=== PATIENT | male | born 1965 | race Caucasian/White ===

== ENCOUNTER 2016-06-08 09:03 | Inpatient (IN) | payer OTHER, MEDICAID ==
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
[2016-06-08] MEDS ORDERED: fentaNYL 100 MCG/2 ML INJ ONE ×2 (09:28→10:50)
[2016-06-08] MEDS ORDERED: IOPAMIDOL (ISOVUE-300) 100 ML BTL IV ONE (09:49)
[2016-06-08] MEDS ORDERED: ETOMIDATE 40 MG/20 ML INJ ONE (10:50)
[2016-06-08] MEDS ORDERED: HYDROmorphONE/DILAUDID 1 MG/ML SYR ONE (10:58)
[2016-06-08] MEDS ORDERED: ONDANSETRON 4 MG/2 ML VIAL ONE (11:00)
[2016-06-08] MEDS ORDERED: fentaNYL 100 MCG/2 ML INJ IVP ONE (11:09)
[2016-06-08] MEDS ORDERED: NS 1,000 ML IV ONE ×3 (11:10→11:14)
[2016-06-08] MEDS ORDERED: HYDROmorphONE/DILAUDID 2 MG/ML INJ IVP PRN (11:15)
[2016-06-08] MEDS ORDERED: ONDANSETRON 4 MG/2 ML VIAL IVP ONE (11:15)
[2016-06-08 11:57] LABS: HEMATOCRIT 41.6 % (40.0-51.0); HEMOGLOBIN 13.8 g/dL (13.7-17.5); LIPEMIA HEMOLYSIS FLAG 80 (0-99); MEAN CELL HEMOGLOBIN 31.4 pg (27.9-34.1); MEAN CELL HEMOGLOBIN CONCENTR. 33.2 g/dL (32.4-36.7); MEAN CELL VOLUME 94.8 fL (81.5-99.8); PLATELET COUNT 563 10^3/uL (150-400); RED BLOOD CELL COUNT 4.39 10^6/uL (4.40-6.38); RED CELL DISTRIBUTION WIDTH 12.8 % (11.5-15.2)
[2016-06-08] MEDS ORDERED: LR 1,000 ML IV SCH (12:00)
[2016-06-08 12:04] LABS: ALANINE AMINOTRANSFERASE 42 IU/L (21-72); ALBUMIN 4.6 g/dL (3.5-5.0); ALKALINE PHOSPHATASE 102 IU/L (38-126); ANION GAP 15 mEq/L (8-16); ASPARTATE AMINOTRANSFERASE 54 IU/L (17-59); BILIRUBIN,TOTAL 0.7 mg/dL (0.1-1.4); CALCIUM 9.6 mg/dL (8.5-10.4); CARBON DIOXIDE 26 mEq/l (22-31); CHLORIDE 100 mEq/L (97-110); CREATININE 0.8 mg/dL (0.7-1.3); GLOMERULAR FILTRATION RATE > 60; GLUCOSE 108 mg/dL (70-100); POTASSIUM 4.1 mEq/L (3.5-5.2); SODIUM 141 mEq/L (134-144)
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
--- NOTE | 2016-06-08 12:11 | DX ---
Portable Chest, 11:28 AM History: Post left chest tube placement for pneumothorax Comparison: 10:04 AM Findings: A new left chest tube is in place. A left pneumothorax is smaller. There is no evidence for tension. Left lateral chest wall and cervical subcutaneous emphysema remains, adjacent to displaced left rib fractures. The left lung remains well aerated. The stomach is distended with gas. Impression: 1.Improved left pneumothorax post chest tube placement. 2. Gaseous distention of the stomach.
[2016-06-08 12:20] LABS: COLOR YELLOW; LEUKOCYTE ESTERASE,URINE NEGATIVE (NEGATIVE); NITRITE,URINE NEGATIVE (NEGATIVE)
[2016-06-08 12:25] LABS: RBC,URINE 50-182 /hpf (0-3)
[2016-06-08] MEDS: ONDANSETRON 4 MG/2 ML VIAL IVP PRN (13:16)
[2016-06-08] MEDS: LR 1,000 ML IV SCH ×2 (13:16→21:47)
[2016-06-08] MEDS: HYDROmorphONE/DILAUDID 1 MG/ML SYR IVP PRN (13:16)
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
[2016-06-08] MEDS: ACETAMINOPHEN 500 MG TAB PO SCH ×2 (16:50→21:46)
[2016-06-08 19:00] LABS: HEMATOCRIT 32.7 % (40.0-51.0)
[2016-06-08] MEDS: KETOROLAC 30 MG/1 ML SDV IVP SCH (19:51)
[2016-06-09 00:32] LABS: HEMATOCRIT 29.3 % (40.0-51.0); HEMOGLOBIN 9.8 g/dL (13.7-17.5)
[2016-06-09] MEDS: HYDROmorphONE/DILAUDID 1 MG/ML SYR IVP PRN ×7 (00:36→23:30)
[2016-06-09] MEDS: ONDANSETRON 4 MG/2 ML VIAL IVP PRN (00:45)
[2016-06-09] MEDS: KETOROLAC 30 MG/1 ML SDV IVP SCH ×5 (01:49→23:18)
[2016-06-09 02:11] LABS: COLOR YELLOW; LEUKOCYTE ESTERASE,URINE NEGATIVE (NEGATIVE); NITRITE,URINE NEGATIVE (NEGATIVE)
[2016-06-09 02:17] LABS: MUCUS TRACE /lpf (NONE-1+)
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
[2016-06-09] MEDS: ACETAMINOPHEN 500 MG TAB PO SCH ×3 (06:10→21:30)
[2016-06-09 06:11] LABS: % IMMATURE GRANULYOCYTES 0.6 % (0.0-1.1); ABSOLUTE IMMATURE GRANULOCYTES 0.05 10^3/uL (0.00-0.10); ADD DIFF? NO; ADD MORPH? NO; ADD SCAN? NO; ATYPICAL LYMPHOCYTE FLAG 20 (0-99); FRAGMENT RBC FLAG 0 (0-99); HEMATOCRIT 28.5 % (40.0-51.0); HEMOGLOBIN 9.6 g/dL (13.7-17.5); LEFT SHIFT FLG 10 (0-99); LIPEMIA HEMOLYSIS FLAG 80 (0-99); MEAN CELL HEMOGLOBIN 32.4 pg (27.9-34.1); MEAN CELL HEMOGLOBIN CONCENTR. 33.7 g/dL (32.4-36.7); MEAN CELL VOLUME 96.3 fL (81.5-99.8); MEAN PLATELET VOLUME 8.9 fL (8.7-11.7); PLATELET CLUMPS FLAG 0 (0-99); PLATELET COUNT 307 10^3/uL (150-400); RED BLOOD CELL COUNT 2.96 10^6/uL (4.40-6.38); RED CELL DISTRIBUTION WIDTH 13.1 % (11.5-15.2)
[2016-06-09] MEDS: LR 1,000 ML IV SCH ×3 (06:15→23:18)
[2016-06-09 06:33] LABS: ANION GAP 5 mEq/L (8-16); CALCIUM 8.5 mg/dL (8.5-10.4); CARBON DIOXIDE 26 mEq/l (22-31); CHLORIDE 106 mEq/L (97-110); CREATININE 0.7 mg/dL (0.7-1.3); GLOMERULAR FILTRATION RATE > 60; GLUCOSE 91 mg/dL (70-100); POTASSIUM 4.5 mEq/L (3.5-5.2); SODIUM 137 mEq/L (134-144)
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
--- NOTE | 2016-06-09 11:13 | GOP ---
[f rep st] OPERATIVE REPORT DATE OF OPERATION: 06/08/2016 SURGEON: Presley Perales MD PREOPERATIVE DIAGNOSIS: Hemopneumothorax, left chest. POSTOPERATIVE DIAGNOSIS: Hemopneumothorax, left chest. PROCEDURE PERFORMED: Placement of left chest tube. This was done under emergent situation. FINDINGS: Hemopneumothorax, left chest. DESCRIPTION OF PROCEDURE: The patient was placed in the supine position on the ER [facility] in trauma b ay 1. His left arm was placed above his head. His left chest was carefully palpated. He has fractu res of ribs 1 through 12. There was a point laterally where rib 5 is minimally tender for him. This was chosen for the place for the chest tube. The chest was carefully prepped and draped. Surgical time-out was carried out and agreed to by all members of the ER team. The skin was anesthetized with 1% Xylocaine and subcutaneous tissues anesthetized with 1% lidocaine. What appears to be the 5th ri b was anesthetized with 1% Xylocaine on its anterior superior surface. The intercostal space between ribs 4 and 5 was anesthetized with 1% Xylocaine. The skin was incised. Careful spreading technique is used to develop a tract over the top of the 5th rib. A #28-Ukrainian chest tube was directed superiorly and anteriorly. It was secured in position wi th a suture #0 silk. A 2nd suture of #0 silk was used to complete the closure of the skin incision. A sterile dressing was applied. The patient was connected to a Pleur-evac. A chest x-ray shows the lung almost completely re-expanded. The patient tolerated the procedure well. /[id number]/MODL
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
[2016-06-10] MEDS: HYDROmorphONE/DILAUDID 1 MG/ML SYR IVP PRN ×3 (01:26→09:58)
[2016-06-10] MEDS: KETOROLAC 30 MG/1 ML SDV IVP SCH ×4 (05:31→23:19)
[2016-06-10] MEDS: ACETAMINOPHEN 500 MG TAB PO SCH ×3 (05:31→20:34)
[2016-06-10] MEDS ORDERED: POLYETHYLENE GLYCOL 3350 17 GM PKT PO PRN (10:53)
[2016-06-10] MEDS ORDERED: BISACODYL 10 MG SUPP PR PRN (10:53)
[2016-06-10] MEDS ORDERED: MAGNESIUM HYDROXIDE 30 ML UDCUP PO PRN (10:53)
[2016-06-10] MEDS ORDERED: LACTULOSE 20 GM/30 ML UDCUP PO PRN (10:53)
[2016-06-10] MEDS: LR 1,000 ML IV SCH (11:22)
[2016-06-10 11:49] LABS: ALANINE AMINOTRANSFERASE 60 IU/L (21-72); ALBUMIN 2.9 g/dL (3.5-5.0); ALKALINE PHOSPHATASE 69 IU/L (38-126); ANION GAP 8 mEq/L (8-16); ASPARTATE AMINOTRANSFERASE 93 IU/L (17-59); BILIRUBIN,TOTAL 0.8 mg/dL (0.1-1.4); CALCIUM 7.8 mg/dL (8.5-10.4); CARBON DIOXIDE 25 mEq/l (22-31); CHLORIDE 102 mEq/L (97-110); CREATININE 0.5 mg/dL (0.7-1.3); GLOMERULAR FILTRATION RATE > 60; GLUCOSE 86 mg/dL (70-100); HEMATOCRIT 25.5 % (40.0-51.0); HEMOGLOBIN 8.5 g/dL (13.7-17.5); MEAN CELL HEMOGLOBIN 32.3 pg (27.9-34.1); MEAN CELL HEMOGLOBIN CONCENTR. 33.3 g/dL (32.4-36.7); POTASSIUM 3.7 mEq/L (3.5-5.2); RED BLOOD CELL COUNT 2.63 10^6/uL (4.40-6.38); RED CELL DISTRIBUTION WIDTH 12.5 % (11.5-15.2); SODIUM 135 mEq/L (134-144); TOTAL PROTEIN 5.5 g/dL (6.3-8.2)
--- NOTE | 2016-06-10 12:27 | DX ---
Portable Chest, 12:15 History: Follow-up rib fractures and hemopneumothorax Comparison: Yesterday Findings: A left chest tube remains in place, with subcutaneous emphysema. There is a slightly improv ed, still small apical pneumothorax without evidence for tension. There is some consolidation at the medial left lung base, unchanged since yesterday. Cardiomegaly remains. No new chest pathology identi fied. Impression: Some improvement in a still small left pneumothorax.
--- NOTE | 2016-06-10 12:52 | TRAUMAPN ---
- Problem/Surgery Performed (1) Ribs, multiple fractures Assessment/Plan: PAD#2 06/10/2016 Assessment: * PTX; no air leak, tube in good position, small PTX but not communicating with chest tube * Hemothorax; Output too high for consideration for chest tube removal * Ribs; poorly aligned, will possibly consider fib fixation Plan: Chest tube off suction follow up cxr Qualifiers: Encounter type: subsequent encounter Fracture type: closed Laterality: left (2) Pelvic fracture Assessment/Plan: Dr. Boyer's note appreciated. Patient is working with PT regarding ambulation. He says that with his leg sttraight he is feeling more stable Qualifiers: Encounter type: subsequent encounter Pelvic bone location: multiple parts Fracture type: closed Fracture alignment: with stable disruption of pelvic ring (3) Hemorrhage Assessment/Plan: HCT slowly dropping. Patient did have a grade 1 splenic lac, bleeding into retro pubic space, microscopic hematuria plan to follow HCT - may need f/u CT abdomen (4) Osteopenia Assessment/Plan: appears to be osteopenic will consider DEXA scan Subjective: " I'm feeling better Objective: Vital Signs Temp Pulse Resp BP Pulse Ox 36.8 C 77 18 117/66 96 06/10/16 12:00 06/10/16 12:00 06/10/16 12:00 06/10/16 12:00 06/10/16 12:00 Laboratory Results 06/10/16 11:00 06/10/16 11:00 06/09/16 06/10/16 06/11/16 05:59 05:59 05:59 Intake Total 2450 3017 Output Total 1675 1410 Balance 775 1607 Physical Exam - Physical Exam General Appearance: WD/WN, alert, no apparent distress Neck: non-tender, full range of motion, supple Respiratory: lungs clear, normal breath sounds, other (left chest tube in place) Cardiac/Chest: regular rate, rhythm Abdomen: normal bowel sounds, non-tender, soft Male Genitalia: deferred Rectal: deferred Back: Normal inspection Skin: normal color, warm/dry Extremities: normal range of motion, non-tender, normal inspection Neuro/Psych: other (Walking difficult due to sacral/inferior pubic ramus/ superior pubic ramus fractures) Time Spent w/Patient (minutes): 35
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
[2016-06-10] MEDS: HYDROmorphONE/DILAUDID 2 MG TAB PO PRN (20:33)
[2016-06-10] MEDS: SENNOSIDES/DOCUSATE SODIUM TAB PO SCH (20:36)
[2016-06-10 20:38] LABS: HEMATOCRIT 26.9 % (40.0-51.0); MEAN CELL HEMOGLOBIN 31.8 pg (27.9-34.1); MEAN CELL HEMOGLOBIN CONCENTR. 33.5 g/dL (32.4-36.7); MEAN CELL VOLUME 95.1 fL (81.5-99.8); RED BLOOD CELL COUNT 2.83 10^6/uL (4.40-6.38); RED CELL DISTRIBUTION WIDTH 12.2 % (11.5-15.2)
[2016-06-11] MEDS: HYDROmorphONE/DILAUDID 2 MG TAB PO PRN ×4 (02:19→20:25)
[2016-06-11] MEDS: ACETAMINOPHEN 500 MG TAB PO SCH ×2 (05:00→12:46)
[2016-06-11] MEDS: KETOROLAC 30 MG/1 ML SDV IVP SCH ×3 (05:01→18:22)
[2016-06-11 05:04] LABS: % IMMATURE GRANULYOCYTES 0.5 % (0.0-1.1); ABSOLUTE IMMATURE GRANULOCYTES 0.04 10^3/uL (0.00-0.10); ADD DIFF? NO; ADD MORPH? NO; ADD SCAN? NO; ATYPICAL LYMPHOCYTE FLAG 10 (0-99); FRAGMENT RBC FLAG 0 (0-99); HEMATOCRIT 24.3 % (40.0-51.0); HEMOGLOBIN 8.3 g/dL (13.7-17.5); LEFT SHIFT FLG 0 (0-99); LIPEMIA HEMOLYSIS FLAG 90 (0-99); MEAN CELL HEMOGLOBIN 32.3 pg (27.9-34.1); MEAN CELL HEMOGLOBIN CONCENTR. 34.2 g/dL (32.4-36.7); MEAN CELL VOLUME 94.6 fL (81.5-99.8); PLATELET CLUMPS FLAG 0 (0-99); PLATELET COUNT 238 10^3/uL (150-400); RED BLOOD CELL COUNT 2.57 10^6/uL (4.40-6.38); RED CELL DISTRIBUTION WIDTH 12.5 % (11.5-15.2)
--- NOTE | 2016-06-11 08:39 | DX ---
Portable AP chest. 06/11/2016 at 6:13 AM History: 1-12 left rib fractures with chest tube Comparison study: June 10, 2016 Findings: Multiple left-sided rib fractures are again noted, with a moderately displaced fracture in the mid to lower left hemithorax. There is a small left-sided pneumothorax accumulating at the costop hrenic angle. No apical pneumothorax. Left chest tube is stable. Right lung is clear. Heart size is normal. Impression: Stable chest. Multiple left-sided rib fractures. Small left pneumothorax.
[2016-06-11] MEDS: SENNOSIDES/DOCUSATE SODIUM TAB PO SCH ×2 (09:41→20:25)
--- NOTE | 2016-06-11 13:07 | TRAUMAPN ---
- Problem/Surgery Performed (1) Ribs, multiple fractures Assessment/Plan: PAD#2 06/10/2016 Assessment: * PTX; no air leak, tube in good position, small PTX but not communicating with chest tube * Hemothorax; Output too high for consideration for chest tube removal * Ribs; poorly aligned, will possibly consider fib fixation Plan: Chest tube off suction follow up cxr PAD#3 06/11/2016 Assessment: Hct slowly dropping. Presume secondary to chest tube/lab losses. Will consider getting FU CT abdomen to reassess spleen. Note chest tube inadvertently pulled out slightly today. Position still adequate but this did prompt some bleeding from insertion site. Minimal PTX. good pain management. Plan: Fu cxr tomorrow and possible CT Qualifiers: Encounter type: subsequent encounter Fracture type: closed Laterality: left (2) Pelvic fracture Assessment/Plan: PAD#2 Dr. Boyer's note appreciated. Patient is working with PT regarding ambulation. He says that with his leg sttraight he is feeling more stable PAD#3 Patient up and walking. Pain less Qualifiers: Encounter type: subsequent encounter Pelvic bone location: multiple parts Fracture type: closed Fracture alignment: with stable disruption of pelvic ring (3) Hemorrhage Assessment/Plan: PAD#2 HCT slowly dropping. Patient did have a grade 1 splenic lac, bleeding into retro pubic space, microscopic hematuria plan to follow HCT - may need f/u CT abdomen PAD#3 As above will consider f/u abd CT to assess splenic/ and retropubic lac stability (4) Osteopenia Assessment/Plan: PAD#2 appears to be osteopenic will consider DEXA scan Subjective: Feeling Better Objective: Vital Signs Temp Pulse Resp BP Pulse Ox 36.8 C 81 16 148/89 H 95 06/11/16 12:00 06/11/16 12:00 06/11/16 12:00 06/11/16 12:00 06/11/16 12:00 Laboratory Results 06/11/16 04:32 06/10/16 11:00 06/10/16 06/11/16 06/12/16 05:59 05:59 05:59 Intake Total 3017 1450 Output Total 1410 1595 25 Balance 1607 -145 -25 Physical Exam - Physical Exam General Appearance: WD/WN, alert, no apparent distress Neck: non-tender, full range of motion, supple Respiratory: chest non-tender, lungs clear, normal breath sounds, other (Chest tube drainage still too high for removal of chest tube. Drainage sero-sanguinous ) Cardiac/Chest: regular rate, rhythm Abdomen: normal bowel sounds, non-tender, soft Male Genitalia: deferred Back: Normal inspection Skin: normal color, warm/dry Neuro/Psych: alert, normal mood/affect, oriented x 3 Time Spent w/Patient (minutes): 25
[2016-06-11] MEDS: CYCLOBENZAPRINE 10 MG TAB PO PRN (16:26)
[2016-06-12] MEDS: ACETAMINOPHEN 500 MG TAB PO SCH ×4 (00:12→20:54)
[2016-06-12] MEDS: KETOROLAC 30 MG/1 ML SDV IVP SCH ×5 (00:12→23:34)
[2016-06-12 05:19] LABS: % IMMATURE GRANULYOCYTES 0.7 % (0.0-1.1); ABSOLUTE IMMATURE GRANULOCYTES 0.05 10^3/uL (0.00-0.10); ADD DIFF? NO; ADD MORPH? NO; ADD SCAN? NO; ATYPICAL LYMPHOCYTE FLAG 0 (0-99); FRAGMENT RBC FLAG 0 (0-99); HEMATOCRIT 24.9 % (40.0-51.0); HEMOGLOBIN 8.4 g/dL (13.7-17.5); LEFT SHIFT FLG 0 (0-99); LIPEMIA HEMOLYSIS FLAG 80 (0-99); MEAN CELL HEMOGLOBIN 32.1 pg (27.9-34.1); MEAN CELL HEMOGLOBIN CONCENTR. 33.7 g/dL (32.4-36.7); MEAN PLATELET VOLUME 8.9 fL (8.7-11.7); PLATELET CLUMPS FLAG 10 (0-99); PLATELET COUNT 284 10^3/uL (150-400); RED BLOOD CELL COUNT 2.62 10^6/uL (4.40-6.38); RED CELL DISTRIBUTION WIDTH 12.4 % (11.5-15.2)
[2016-06-12 05:42] LABS: ANION GAP 8 mEq/L (8-16); CALCIUM 8.7 mg/dL (8.5-10.4); CARBON DIOXIDE 29 mEq/l (22-31); CHLORIDE 101 mEq/L (97-110); CREATININE 0.6 mg/dL (0.7-1.3); GLOMERULAR FILTRATION RATE > 60; GLUCOSE 91 mg/dL (70-100); POTASSIUM 4.3 mEq/L (3.5-5.2); SODIUM 138 mEq/L (134-144)
[2016-06-12] MEDS: SENNOSIDES/DOCUSATE SODIUM TAB PO SCH ×2 (09:07→20:53)
[2016-06-12] MEDS: HYDROmorphONE/DILAUDID 2 MG TAB PO PRN (09:11)
[2016-06-12] MEDS ORDERED: IOPAMIDOL (ISOVUE-300) 100 ML BTL IV ONE (14:15)
--- NOTE | 2016-06-12 15:22 | DX ---
Chest, Two Views - June 11, 2016 at 1316 hours History: Fraction of left ribs 1-12. Left chest tube. Comparison: June 11, 2016 Findings: Cardiac silhouette is within normal range. Multiple displaced left rib fractures 1st throug h 12th ribs in the midaxillary line. Left-sided chest tube is in the mid to upper lateral hemithorax region. No definite pneumothorax. Left lower lobe alveolar opacity consistent with pulmonary contusio n. Left chest wall subcutaneous emphysema. Minimal right pleural effusion. Impression: 1. Multiple displaced left rib fractures. 2. Left-sided chest tube without definite pneumothorax.
--- NOTE | 2016-06-12 16:31 | CT ---
CT Scan of the Abdomen and pelvis (With Contrast) 1434 hours History: Slowly dropping hematocrit. Previous grade 1 splenic injury. Evaluate for pseudoaneurysm of the spleen. Technique: Axial computed tomographic images of the abdomen were obtained with the uneventful intrave nous administration of 90 mL Isovue-300 contrast during arterial phase. Imaging through the abdomen a nd pelvis were obtained during venous phase. Images were reviewed in multiple planes. Dose reduction techniques were utilized. CT Abdomen and Pelvis Findings: Comparison to prior CT study of 06/08/2016. Lung bases: Mild to moderate left pleural effusion is identified with adjacent compressive atelectati c change left base. There is small dependent atelectasis at the right lung base posteriorly. There is a small residual left sided pneumothorax.. Liver: Normal. Spleen: There is a stable small 1 cm hypodensity near the splenic hilum. There is no evidence of [place] splenic hematoma. During arterial phase of imaging there are 2 small 5 mm foci of increased enhanceme nt along the anterior aspect of the mid spleen that is not persistent on delayed imaging. The splenic artery and vein are normal in course and appearance. There is no extravasation of contrast. Gallbladder and Bile Ducts: Normal. Pancreas: Normal. Adrenals: Normal. Kidneys: No obstruction or solid masses. There are a few small less than 5 mm cysts associated with t he left kidney. Abdominal Aorta: No aneurysm. Pelvic soft tissue structures: There is mild increase in dependent edema along the perineum in the lo wer pelvis along the pelvic floor musculature is probably related to some dependent blood products th ere is also soft tissue thickening along the left anterior aspect of the bladder adjacent to the left superior pubic ramus to symphysis fracture probably representing a small hematoma. No additional hem atoma collections are identified in the pelvis. Bladder: Normal. Appendix: Normal. Bowel Loops: Normal. No bowel obstruction, ascites, or significant retroperitoneal lymphadenopathy. The previously visuali zed right inguinal hernia has resolved. Skeletal system: Vertebral body heights are well-maintained. There are no significant lytic or scler otic osseous lesions. Posterior fusion is suspected associated with the spinous processes. Fracture i s noted involving the superior pubic ramus and symphysis extending to the inferior pubic ramus. There is also nondisplaced fracture of the left side of the sacrum. Fractures are also seen associated wit h the posterior left eighth through 12th ribs. Subcutaneous gas is seen over the left lateral lower c hest wall decreased since the prior study with adjacent soft tissue contusion and edema. Impression: 1. Stable appearance of small focal grade 1 laceration near the splenic hilum. No subcapsular hematom a is seen. 2. Small nonpersistent enhancing foci within the mid spleen anteriorly without well-defined margins o nly seen during arterial phase. These do not appear to be associated directly with splenic artery. Th michaela aren't felt to be insignificant. This portion of the study was also reviewed with Dr. Kaleb ash. 3. Mild to moderate left pleural effusion is increased with associated adjacent compressive atelectat ic change left lower lobe with mild amount of dependent atelectasis right lung base also noted. 4. Relatively stable fractures involving left lower ribs as well as left superior and inferior pubic ramus and symphysis along with left side of the sacrum. 5. Small hematoma is seen adjacent to the left symphysis fracture as well as thickening of the soft t issues along the dependent aspect of the perineum in the lower pelvis also probably related to bony f ractures. 6. Interval resolution of right inguinal hernia.
--- NOTE | 2016-06-12 17:38 | TRAUMAPN ---
- Problem/Surgery Performed (1) Ribs, multiple fractures Assessment/Plan: PAD#2 06/10/2016 Assessment: * PTX; no air leak, tube in good position, small PTX but not communicating with chest tube * Hemothorax; Output too high for consideration for chest tube removal * Ribs; poorly aligned, will possibly consider fib fixation Plan: Chest tube off suction follow up cxr PAD#3 06/11/2016 Assessment: Hct slowly dropping. Presume secondary to chest tube/lab losses. Will consider getting FU CT abdomen to reassess spleen. Note chest tube inadvertently pulled out slightly today. Position still adequate but this did prompt some bleeding from insertion site. Minimal PTX. good pain management. Plan: Fu cxr tomorrow and possible CT PAD#4 06/12/2016 Assessment: HCT stable. CT abdomen without ongoing issues. Chest tude with minimal out put. Chest tube removed and found to be clotted. No PTX. residual hemothorax ( small) Plan: Fu CXR in AM. Replace tube if necessary Qualifiers: Encounter type: subsequent encounter Fracture type: closed Laterality: left (2) Pelvic fracture Assessment/Plan: PAD#2 Dr. Boyer's note appreciated. Patient is working with PT regarding ambulation. He says that with his leg sttraight he is feeling more stable PAD#3 Patient up and walking. Pain less PAD#4 Pain with rotation of hips/pelvis but otherwise up walking Qualifiers: Encounter type: subsequent encounter Pelvic bone location: multiple parts Fracture type: closed Fracture alignment: with stable disruption of pelvic ring (3) Hemorrhage Assessment/Plan: PAD#2 HCT slowly dropping. Patient did have a grade 1 splenic lac, bleeding into retro pubic space, microscopic hematuria plan to follow HCT - may need f/u CT abdomen PAD#3 As above will consider f/u abd CT to assess splenic/ and retropubic lac stability PAD#4 Stable! (4) Osteopenia Assessment/Plan: PAD#2 appears to be osteopenic will consider DEXA scan Subjective: feeling generally better Objective: Vital Signs Temp Pulse Resp BP Pulse Ox 36.6 C 85 16 150/86 H 92 06/12/16 16:00 06/12/16 16:00 06/12/16 16:00 06/12/16 16:00 06/12/16 16:00 Laboratory Results 06/12/16 04:45 06/12/16 04:45 06/11/16 06/12/16 06/13/16 05:59 05:59 05:59 Intake Total 1450 1600 750 Output Total 1595 625 Balance -145 975 750 Physical Exam - Physical Exam General Appearance: WD/WN, alert, no apparent distress Neck: non-tender, full range of motion, supple Respiratory: lungs clear, normal breath sounds Cardiac/Chest: regular rate, rhythm Abdomen: normal bowel sounds, non-tender, soft Male Genitalia: deferred Rectal: deferred Back: Normal inspection Extremities: normal range of motion, non-tender Neuro/Psych: no motor/sensory deficits, alert, normal mood/affect, oriented x 3 Time Spent w/Patient (minutes): 25
[2016-06-12] MEDS: CYCLOBENZAPRINE 10 MG TAB PO PRN (21:41)
--- NOTE | 2016-06-12 21:59 | DX ---
DEXA Bone Mineral Densitometry Clinical Indications: Screening. Comparison: Baseline Technique: Bone Mineral Densitometry (BMD) by Dual Energy X-Ray Absorptiometry (DEXA) was performed utilizing the Gumiyo scanner. The lumbar spine was evaluated in the AP projection. The bilat eral hips and left forearm were evaluated in the AP projection. Vertebral fracture assessment was als o performed. AP Lumbar Spine: The L1, L2, L3 and L4 vertebral bodies are evaluated. BMD: 0.91 gm/cm2 T-score: -2.7 SD Z-score: -1.8 SD AP left Hip: BMD: 0.7 gm/cm2 T-score: -2.9 SD Z-score: -1.7 SD AP right Hip: BMD: 0.72 gm/cm2 T-score: -2.7 SD Z-score: -1.5 SD AP left Forearm: BMD: 0.77 gm/cm2 T-score: -2.2 SD Z-score: -2.1 SD Vertebral Fracture Assessment: No significant fracture deformity Conclusion: Considering the lowest measured site, patient is osteoporotic. The ten year risk for any major osteoporotic fracture is 15.6 % and for a hip fracture is 6.4 %. Any bone loss in this patient is probably related to aging or estrogen deficiency. Recommendations: Consider excluding secondary metabolic causes of bone loss (reported to be present in as many as 30% of patients with normal Z scores). Laboratory evaluation might include hydroxy vitamin D3 level, TSH, PTH, calcium, 24-hour urine calcium, phosphorous, albumin, creatinine, alkaline phosphatase, serum e lectrophoresis (SPEP or UPEP), anti-tissue transglutaminase antibody levels (celiac disease) and CBC . If secondary causes are excluded, then consider initiating treatment with a bisphosphonate (such a s Fosamax, Actonel or Boniva). If the patient is unable to use an oral bisphosphonate, another agent such as IV bisphosphonates (Boniva or Reclast), teriparatide (Forteo), or a selective estrogen recept or modulator (Evista) might be considered. Supplementing an insufficient diet to achieve total intakes of 1500 mg calcium and 800 International Units of vitamin D daily should be considered. Osteoporosis prevention and treatment begins by modify ing risk factors. The patient should be encouraged to participate in a regular exercise program that includes weightbearing and muscle strengthening regimens, as is clinically appropriate. Recommend follow-up DEXA in one year to assess the efficacy of pharmacologic intervention and/or vijay ection of appropriate secondary cause.
[2016-06-13 06:18] LABS: HEMATOCRIT 25.3 % (40.0-51.0); HEMOGLOBIN 8.7 g/dL (13.7-17.5); MEAN CELL HEMOGLOBIN 32.2 pg (27.9-34.1); MEAN CELL HEMOGLOBIN CONCENTR. 34.4 g/dL (32.4-36.7); MEAN CELL VOLUME 93.7 fL (81.5-99.8); RED BLOOD CELL COUNT 2.7 10^6/uL (4.40-6.38); RED CELL DISTRIBUTION WIDTH 12.7 % (11.5-15.2)
[2016-06-13] MEDS: ACETAMINOPHEN 500 MG TAB PO SCH ×3 (07:32→21:24)
[2016-06-13] MEDS: KETOROLAC 30 MG/1 ML SDV IVP SCH ×2 (07:32→12:01)
[2016-06-13] MEDS: SENNOSIDES/DOCUSATE SODIUM TAB PO SCH ×2 (08:06→21:25)
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
[2016-06-13] MEDS: HYDROmorphONE/DILAUDID 2 MG TAB PO PRN (19:04)
[2016-06-13] MEDS: CYCLOBENZAPRINE 10 MG TAB PO PRN (21:24)
[2016-06-13] MEDS: HYDROmorphONE/DILAUDID 1 MG/ML SYR IVP PRN (21:24)
[2016-06-14] MEDS: ACETAMINOPHEN 500 MG TAB PO SCH ×3 (05:44→22:24)
[2016-06-14] MEDS: HYDROmorphONE/DILAUDID 2 MG TAB PO PRN ×4 (05:45→22:23)
[2016-06-14] MEDS: SENNOSIDES/DOCUSATE SODIUM TAB PO SCH ×2 (08:50→22:23)
[2016-06-14] MEDS: CYCLOBENZAPRINE 10 MG TAB PO PRN ×2 (08:51→17:47)
--- NOTE | 2016-06-14 14:27 | TRAUMAPN ---
- Problem/Surgery Performed (1) Splenic laceration Assessment/Plan: H/H stable without need for transfusion able to advance activity as tolerated Qualifiers: Encounter type: initial encounter Qualified Code(s): S36.039A - Unspecified laceration of spleen, initial encounter (2) Hemothorax Assessment/Plan: s/p left closed tube thoracostomy/CT out since yesterday small left pleural effusion and apical pneumothorax yesterday repeat CXR today (3) Pelvic fracture Assessment/Plan: limiting mobility/ambulatory with walker/will initiate VTE prophylaxis with Lovenox Qualifiers: Encounter type: subsequent encounter Pelvic bone location: multiple parts Sublocation of acetabulum: S Sublocation of pubis: S Fracture type: closed Fracture morphology: F Fracture alignment: with stable disruption of pelvic ring Laterality: L Fracture healing: F (4) Pneumothorax Qualifiers: Pneumothorax type: traumatic Encounter type: E (5) Ribs, multiple fractures Assessment/Plan: pain resolving Qualifiers: Encounter type: subsequent encounter Fracture type: closed Laterality: left Fracture healing: F (7) Neck pain Assessment/Plan: new complaint/history of ankylosing spondylitis will obtain cervical spine CT Subjective: slow to move with walker/ c/o neck pain Objective: Vital Signs Temp Pulse Resp BP Pulse Ox 36.9 C 86 16 146/84 H 92 06/14/16 07:27 06/14/16 07:27 06/14/16 07:27 06/14/16 07:27 06/14/16 07:27 Laboratory Results 06/13/16 05:08 06/12/16 04:45 06/13/16 06/14/16 06/15/16 05:59 05:59 05:59 Intake Total 1100 1350 300 Output Total 300 200 Balance 1100 1050 100 - C-Spine Clearance Cervical Spine Cleared: No Physical Exam - Physical Exam General Appearance: alert, mild distress Neck: tender midline Respiratory: decreased breath sounds (left base) Cardiac/Chest: regular rate, rhythm Abdomen: soft, other (mild LUQ tenderness) Back: Normal inspection Skin: normal color Neuro/Psych: normal mood/affect, oriented x 3
[2016-06-14] MEDS ORDERED: Herbals/Supplements -Info Only PO SCH (14:30)
--- NOTE | 2016-06-14 16:26 | SOAPPROG ---
Downtime Inpatient Late Entry SOAP Note: I was contacted by Dr. Hernandez who read Broderick's CT cervical spine. He was found to have a CT fracture with possible epidural hematoma. He was placed in a hard collar and neurosurgery consultation was requested. Emma Haq MD, FACS
[2016-06-14] MEDS: ENOXAPARIN 40 MG/0.4 ML SYR SC SCH (18:23)
[2016-06-14] MEDS ORDERED: IOPAMIDOL (ISOVUE 370) 100 ML BTL IV ONE (18:56)
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
[2016-06-15] MEDS: ACETAMINOPHEN 500 MG TAB PO SCH ×3 (05:09→20:10)
[2016-06-15 05:46] LABS: % IMMATURE GRANULYOCYTES 2.7 % (0.0-1.1); ABSOLUTE IMMATURE GRANULOCYTES 0.23 10^3/uL (0.00-0.10); ADD DIFF? NO; ADD MORPH? NO; ADD SCAN? NO; ATYPICAL LYMPHOCYTE FLAG 10 (0-99); FRAGMENT RBC FLAG 0 (0-99); HEMATOCRIT 26.5 % (40.0-51.0); HEMOGLOBIN 8.9 g/dL (13.7-17.5); LEFT SHIFT FLG 20 (0-99); LIPEMIA HEMOLYSIS FLAG 80 (0-99); MEAN CELL HEMOGLOBIN 31.8 pg (27.9-34.1); MEAN CELL HEMOGLOBIN CONCENTR. 33.6 g/dL (32.4-36.7); MEAN CELL VOLUME 94.6 fL (81.5-99.8); MEAN PLATELET VOLUME 8.4 fL (8.7-11.7); PLATELET CLUMPS FLAG 10 (0-99); PLATELET COUNT 464 10^3/uL (150-400); RED CELL DISTRIBUTION WIDTH 13.1 % (11.5-15.2)
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
[2016-06-15] MEDS: ENOXAPARIN 40 MG/0.4 ML SYR SC SCH (08:51)
[2016-06-15] MEDS: SENNOSIDES/DOCUSATE SODIUM TAB PO SCH ×2 (08:52→20:11)
[2016-06-15] MEDS: HYDROmorphONE/DILAUDID 2 MG TAB PO PRN ×4 (08:52→23:28)
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
[2016-06-15] MEDS: CYCLOBENZAPRINE 10 MG TAB PO PRN (20:14)
[2016-06-16] MEDS: CYCLOBENZAPRINE 10 MG TAB PO PRN ×2 (05:50→21:06)
[2016-06-16] MEDS: ACETAMINOPHEN 500 MG TAB PO SCH ×3 (05:51→21:05)
[2016-06-16] MEDS: HYDROmorphONE/DILAUDID 2 MG TAB PO PRN (09:49)
[2016-06-16] MEDS: ENOXAPARIN 40 MG/0.4 ML SYR SC SCH (09:50)
[2016-06-16] MEDS: SENNOSIDES/DOCUSATE SODIUM TAB PO SCH ×2 (09:50→21:06)
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
[2016-06-17] MEDS: ACETAMINOPHEN 500 MG TAB PO SCH ×3 (05:57→20:47)
[2016-06-17] MEDS: ENOXAPARIN 40 MG/0.4 ML SYR SC SCH (09:31)
[2016-06-17] MEDS: CYCLOBENZAPRINE 10 MG TAB PO PRN ×2 (09:31→20:47)
[2016-06-17] MEDS: SENNOSIDES/DOCUSATE SODIUM TAB PO SCH ×2 (09:31→20:47)
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
[2016-06-17] MEDS: HYDROmorphONE/DILAUDID 2 MG TAB PO PRN (20:47)
[2016-06-18] MEDS: HYDROmorphONE/DILAUDID 2 MG TAB PO PRN ×3 (01:38→18:07)
[2016-06-18 05:11] LABS: HEMATOCRIT 27.9 % (40.0-51.0); HEMOGLOBIN 9.3 g/dL (13.7-17.5); LIPEMIA HEMOLYSIS FLAG 80 (0-99); MEAN CELL HEMOGLOBIN 31.6 pg (27.9-34.1); MEAN CELL HEMOGLOBIN CONCENTR. 33.3 g/dL (32.4-36.7); MEAN CELL VOLUME 94.9 fL (81.5-99.8); RED BLOOD CELL COUNT 2.94 10^6/uL (4.40-6.38); RED CELL DISTRIBUTION WIDTH 13.4 % (11.5-15.2)
[2016-06-18 05:13] LABS: PLATELET COUNT 992 10^3/uL (150-400)
[2016-06-18 05:41] LABS: ALANINE AMINOTRANSFERASE 69 IU/L (21-72); ALBUMIN 3.7 g/dL (3.5-5.0); ALKALINE PHOSPHATASE 92 IU/L (38-126); ANION GAP 10 mEq/L (8-16); ASPARTATE AMINOTRANSFERASE 50 IU/L (17-59); BILIRUBIN,TOTAL 0.7 mg/dL (0.1-1.4); CALCIUM 9.7 mg/dL (8.5-10.4); CARBON DIOXIDE 26 mEq/l (22-31); CHLORIDE 98 mEq/L (97-110); CREATININE 0.7 mg/dL (0.7-1.3); GLOMERULAR FILTRATION RATE > 60; GLUCOSE 85 mg/dL (70-100); SODIUM 134 mEq/L (134-144); TOTAL PROTEIN 6.8 g/dL (6.3-8.2)
[2016-06-18 05:48] LABS: PLATELET ESTIMATE INCREASED (ADEQ)
[2016-06-18] MEDS: ACETAMINOPHEN 500 MG TAB PO SCH ×3 (06:16→21:16)
[2016-06-18] MEDS: ENOXAPARIN 40 MG/0.4 ML SYR SC SCH (09:24)
[2016-06-18] MEDS: SENNOSIDES/DOCUSATE SODIUM TAB PO SCH ×2 (09:24→21:17)
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
[2016-06-18] MEDS: CYCLOBENZAPRINE 10 MG TAB PO PRN (21:17)
[2016-06-19] MEDS: HYDROmorphONE/DILAUDID 2 MG TAB PO PRN ×5 (00:59→22:06)
[2016-06-19] MEDS: ACETAMINOPHEN 500 MG TAB PO SCH ×3 (05:47→22:06)
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
[2016-06-19] MEDS: ENOXAPARIN 40 MG/0.4 ML SYR SC SCH (09:37)
[2016-06-19] MEDS: SENNOSIDES/DOCUSATE SODIUM TAB PO SCH ×2 (09:37→19:26)
[2016-06-19] MEDS: CYCLOBENZAPRINE 10 MG TAB PO PRN ×3 (09:45→22:06)
[2016-06-20] MEDS: HYDROmorphONE/DILAUDID 2 MG TAB PO PRN ×3 (03:22→19:34)
[2016-06-20] MEDS: ACETAMINOPHEN 500 MG TAB PO SCH ×3 (05:54→22:04)
[2016-06-20] MEDS: CYCLOBENZAPRINE 10 MG TAB PO PRN ×2 (05:55→19:34)
[2016-06-20] MEDS: ENOXAPARIN 40 MG/0.4 ML SYR SC SCH (08:33)
[2016-06-20] MEDS: SENNOSIDES/DOCUSATE SODIUM TAB PO SCH ×2 (08:40→19:33)
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
[2016-06-20 16:26] LABS: HEMATOCRIT 29.5 % (40.0-51.0); HEMOGLOBIN 9.8 g/dL (13.7-17.5); LIPEMIA HEMOLYSIS FLAG 80 (0-99); MEAN CELL HEMOGLOBIN 31.5 pg (27.9-34.1); MEAN CELL HEMOGLOBIN CONCENTR. 33.2 g/dL (32.4-36.7); MEAN CELL VOLUME 94.9 fL (81.5-99.8); RED BLOOD CELL COUNT 3.11 10^6/uL (4.40-6.38); RED CELL DISTRIBUTION WIDTH 13.4 % (11.5-15.2)
[2016-06-20 16:28] LABS: PLATELET CLUMPS FLAG 0 (0-99)
[2016-06-20 16:31] LABS: PLATELET COUNT 1415 10^3/uL (150-400)
[2016-06-20 16:37] LABS: ANION GAP 10 mEq/L (8-16); CALCIUM 9.9 mg/dL (8.5-10.4); CARBON DIOXIDE 28 mEq/l (22-31); CHLORIDE 96 mEq/L (97-110); CREATININE 0.8 mg/dL (0.7-1.3); GLOMERULAR FILTRATION RATE > 60; GLUCOSE 99 mg/dL (70-100); POTASSIUM 4.9 mEq/L (3.5-5.2); SODIUM 134 mEq/L (134-144)
[2016-06-20 16:39] LABS: INR 1.02 (0.83-1.16); PROTIME(PATIENT) 13.3 SEC (12.0-15.0)
[2016-06-20 17:25] LABS: PLATELET ESTIMATE INCREASED (ADEQ)
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
[2016-06-21] MEDS: HYDROmorphONE/DILAUDID 2 MG TAB PO PRN ×3 (03:26→22:39)
[2016-06-21] MEDS: ACETAMINOPHEN 500 MG TAB PO SCH ×3 (06:27→21:43)
[2016-06-21] MEDS: CYCLOBENZAPRINE 10 MG TAB PO PRN ×2 (06:27→21:31)
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
[2016-06-21] MEDS: SENNOSIDES/DOCUSATE SODIUM TAB PO SCH ×2 (09:29→21:33)
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
[2016-06-21] MEDS ORDERED: THROMBIN (RECOMBINANT) 5,000 UNIT VIAL TP ONE (15:33)
[2016-06-21] MEDS ORDERED: MANNITOL 20% 100 GM/500 ML BAG IV ONE (15:33)
[2016-06-21] MEDS ORDERED: BUPIVACAINE/EPI 0.25% 30 ML SDV ONE (15:33)
[2016-06-21] MEDS ORDERED: BACITRACIN 50,000 UNITS/10 ML SYR IRR ONE (15:34)
[2016-06-21] MEDS ORDERED: CEFAZOLIN 1 GM/DEXTROSE/50 ML BAG IV ONE (16:09)
[2016-06-21] MEDS ORDERED: MIDAZOLAM 2 MG/2 ML VIAL ONE (16:38)
[2016-06-21] MEDS ORDERED: REMIFENTANIL HCL 1 MG VIAL ONE ×3 (17:04→17:07)
[2016-06-21] MEDS ORDERED: PROPOFOL/EMULSION 500 MG/50 ML BOTTLE IV ONE ×3 (17:04→18:22)
[2016-06-21] MEDS ORDERED: SUCCINYLCHOLINE CHLORIDE*ANESTHESIA ONLY*200 MG/10 ML SYR IVP ONE (17:10)
[2016-06-21] MEDS ORDERED: fentaNYL 100 MCG/2 ML INJ ONE ×2 (17:28→19:17)
[2016-06-21] MEDS ORDERED: PHENYLEPHRINE 10 MG/ML SDV ONE (17:34)
[2016-06-21] MEDS ORDERED: ONDANSETRON 4 MG/2 ML VIAL ONE (17:37)
[2016-06-21] MEDS ORDERED: DEXAMETHASONE 4 MG/ML VIAL ONE (17:37)
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
[2016-06-21] MEDS ORDERED: HYDROmorphONE/DILAUDID 1 MG/ML SYR IVP PRN (19:13)
[2016-06-21] MEDS ORDERED: DIAZEPAM 10 MG/2 ML SYR IVP PRN (19:13)
[2016-06-21] MEDS ORDERED: NALOXONE HCL 0.4 MG/ML INJ IVP PRN (19:13)
[2016-06-21] MEDS ORDERED: HYDROCODONE/APAP 10/325 TAB PO PRN (19:13)
[2016-06-21] MEDS ORDERED: HYDROmorphONE/DILAUDID 6 MG/30 ML PCA IV PRN (19:13)
[2016-06-21] MEDS ORDERED: diphenhydrAMINE 25 MG CAP PO PRN (19:13)
[2016-06-21] MEDS ORDERED: NS W/ 20 KCl/L 1,000 ML IV SCH (19:15)
[2016-06-21] MEDS ORDERED: HYDROmorphONE/DILAUDID 1 MG/ML SYR ONE (19:17)
[2016-06-21] MEDS ORDERED: DIAZEPAM 10 MG/2 ML SYR ONE (19:45)
[2016-06-21] MEDS: LR 1,000 ML IV SCH (20:37)
[2016-06-21] MEDS ORDERED: FAMOTIDINE 20 MG/NACL 50 ML IV SCH (21:00)
[2016-06-21] MEDS: FAMOTIDINE 20 MG TAB PO SCH (21:32)
[2016-06-21] MEDS: oxyCODONE IR 5 MG TAB PO PRN (21:39)
[2016-06-22] MEDS: DIAZEPAM 5 MG TAB PO PRN ×3 (00:11→17:41)
[2016-06-22] MEDS: METHOCARBAMOL 750 MG TAB PO PRN (04:49)
[2016-06-22] MEDS: HYDROmorphONE/DILAUDID 2 MG TAB PO PRN (04:49)
[2016-06-22] MEDS: LR 1,000 ML IV SCH (05:00)
[2016-06-22 05:35] LABS: % IMMATURE GRANULYOCYTES 0.9 % (0.0-1.1); ABSOLUTE IMMATURE GRANULOCYTES 0.15 10^3/uL (0.00-0.10); ADD DIFF? NO; ADD MORPH? NO; ADD SCAN? NO; ATYPICAL LYMPHOCYTE FLAG 0 (0-99); FRAGMENT RBC FLAG 0 (0-99); HEMATOCRIT 28.8 % (40.0-51.0); HEMOGLOBIN 9.9 g/dL (13.7-17.5); LEFT SHIFT FLG 10 (0-99); LIPEMIA HEMOLYSIS FLAG 90 (0-99); MEAN CELL HEMOGLOBIN 31.5 pg (27.9-34.1); MEAN CELL HEMOGLOBIN CONCENTR. 34.4 g/dL (32.4-36.7); MEAN CELL VOLUME 91.7 fL (81.5-99.8); MEAN PLATELET VOLUME 7.5 fL (8.7-11.7); PLATELET CLUMPS FLAG 10 (0-99); RED BLOOD CELL COUNT 3.14 10^6/uL (4.40-6.38); RED CELL DISTRIBUTION WIDTH 12.8 % (11.5-15.2)
[2016-06-22 05:38] LABS: PLATELET COUNT 1448 10^3/uL (150-400)
[2016-06-22 05:56] LABS: ANION GAP 10 mEq/L (8-16); CALCIUM 9.8 mg/dL (8.5-10.4); CARBON DIOXIDE 25 mEq/l (22-31); CHLORIDE 97 mEq/L (97-110); CREATININE 0.7 mg/dL (0.7-1.3); GLOMERULAR FILTRATION RATE > 60; GLUCOSE 107 mg/dL (70-100); POTASSIUM 4.9 mEq/L (3.5-5.2); SODIUM 132 mEq/L (134-144)
[2016-06-22] MEDS: ACETAMINOPHEN 500 MG TAB PO SCH ×3 (06:17→21:23)
[2016-06-22] MEDS: oxyCODONE IR 5 MG TAB PO PRN ×5 (06:23→21:29)
[2016-06-22 06:24] LABS: PLATELET ESTIMATE INCREASED (ADEQ)
[2016-06-22] MEDS: ASPIRIN EC 81 MG TAB PO SCH (08:19)
[2016-06-22] MEDS: SENNOSIDES/DOCUSATE SODIUM TAB PO SCH ×2 (08:19→21:23)
[2016-06-22] MEDS: FAMOTIDINE 20 MG TAB PO SCH ×2 (08:20→21:24)
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
[2016-06-22] MEDS: CYCLOBENZAPRINE 10 MG TAB PO PRN (21:30)
[2016-06-23] MEDS: oxyCODONE IR 5 MG TAB PO PRN ×4 (03:27→21:03)
[2016-06-23] MEDS: CYCLOBENZAPRINE 10 MG TAB PO PRN ×3 (03:27→21:03)
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
[2016-06-23] MEDS: FAMOTIDINE 20 MG TAB PO SCH ×2 (08:35→21:03)
[2016-06-23] MEDS: ACETAMINOPHEN 500 MG TAB PO SCH ×3 (08:35→21:02)
[2016-06-23] MEDS: METHOCARBAMOL 750 MG TAB PO PRN (08:36)
[2016-06-23] MEDS: SENNOSIDES/DOCUSATE SODIUM TAB PO SCH ×2 (08:36→21:02)
[2016-06-23] MEDS: ASPIRIN EC 81 MG TAB PO SCH (08:36)
[2016-06-23] MEDS: HYDROmorphONE/DILAUDID 2 MG TAB PO PRN (12:16)
[2016-06-23] MEDS: TEMAZEPAM 15 MG CAP PO PRN (23:23)
[2016-06-24] MEDS: oxyCODONE IR 5 MG TAB PO PRN ×3 (03:15→21:33)
[2016-06-24 05:06] LABS: HEMATOCRIT 27.8 % (40.0-51.0); HEMOGLOBIN 9.1 g/dL (13.7-17.5); LIPEMIA HEMOLYSIS FLAG 80 (0-99); MEAN CELL HEMOGLOBIN 32.2 pg (27.9-34.1); MEAN CELL HEMOGLOBIN CONCENTR. 32.7 g/dL (32.4-36.7); MEAN CELL VOLUME 98.2 fL (81.5-99.8); RED BLOOD CELL COUNT 2.83 10^6/uL (4.40-6.38); RED CELL DISTRIBUTION WIDTH 12.9 % (11.5-15.2)
[2016-06-24 05:11] LABS: PLATELET COUNT 1307 10^3/uL (150-400)
[2016-06-24] MEDS: ACETAMINOPHEN 500 MG TAB PO SCH ×3 (05:33→21:33)
[2016-06-24] MEDS: METHOCARBAMOL 750 MG TAB PO PRN ×2 (05:34→14:59)
[2016-06-24 05:36] LABS: PLATELET ESTIMATE INCREASED (ADEQ)
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
[2016-06-24] MEDS: ENOXAPARIN 40 MG/0.4 ML SYR SC SCH (09:21)
[2016-06-24] MEDS: ASPIRIN EC 81 MG TAB PO SCH (09:23)
[2016-06-24] MEDS: SENNOSIDES/DOCUSATE SODIUM TAB PO SCH ×2 (09:23→21:32)
[2016-06-24] MEDS: FAMOTIDINE 20 MG TAB PO SCH ×2 (09:23→21:34)
[2016-06-24] MEDS: CYCLOBENZAPRINE 10 MG TAB PO PRN ×2 (09:23→21:33)
[2016-06-24] MEDS: HYDROmorphONE/DILAUDID 2 MG TAB PO PRN (09:23)
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
[2016-06-25] MEDS: oxyCODONE IR 5 MG TAB PO PRN ×3 (00:28→22:21)
[2016-06-25] MEDS: METHOCARBAMOL 750 MG TAB PO PRN (00:29)
[2016-06-25] MEDS: ACETAMINOPHEN 500 MG TAB PO SCH ×3 (05:59→22:17)
[2016-06-25] MEDS: CYCLOBENZAPRINE 10 MG TAB PO PRN ×2 (05:59→17:48)
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
[2016-06-25] MEDS: HYDROmorphONE/DILAUDID 2 MG TAB PO PRN ×2 (10:30→17:48)
[2016-06-25] MEDS: ENOXAPARIN 40 MG/0.4 ML SYR SC SCH (10:31)
[2016-06-25] MEDS: SENNOSIDES/DOCUSATE SODIUM TAB PO SCH ×2 (10:31→19:34)
[2016-06-25] MEDS: FAMOTIDINE 20 MG TAB PO SCH ×2 (10:31→19:34)
[2016-06-25] MEDS: ASPIRIN EC 81 MG TAB PO SCH (10:31)
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
[2016-06-26] MEDS: CYCLOBENZAPRINE 10 MG TAB PO PRN ×2 (02:15→11:17)
[2016-06-26] MEDS: ACETAMINOPHEN 500 MG TAB PO SCH ×3 (05:04→20:53)
[2016-06-26] MEDS: HYDROmorphONE/DILAUDID 2 MG TAB PO PRN ×2 (05:04→09:43)
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
[2016-06-26] MEDS: ENOXAPARIN 40 MG/0.4 ML SYR SC SCH (09:43)
[2016-06-26] MEDS: FAMOTIDINE 20 MG TAB PO SCH ×2 (09:43→20:53)
[2016-06-26] MEDS: ASPIRIN EC 81 MG TAB PO SCH (09:44)
[2016-06-26] MEDS: SENNOSIDES/DOCUSATE SODIUM TAB PO SCH ×3 (09:44→20:55)
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
[2016-06-26 11:20] LABS: HEMATOCRIT 32.5 % (40.0-51.0); HEMOGLOBIN 10.8 g/dL (13.7-17.5); LIPEMIA HEMOLYSIS FLAG 80 (0-99); MEAN CELL HEMOGLOBIN CONCENTR. 33.2 g/dL (32.4-36.7); MEAN CELL VOLUME 96.2 fL (81.5-99.8); RED BLOOD CELL COUNT 3.38 10^6/uL (4.40-6.38); RED CELL DISTRIBUTION WIDTH 12.6 % (11.5-15.2)
[2016-06-26 11:49] LABS: PLATELET COUNT 1544 10^3/uL (150-400)
[2016-06-26 12:31] LABS: PLATELET ESTIMATE INCREASED (ADEQ)
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
[2016-06-26 16:44] LABS: % SATURATION 17 % (20-55); TOTAL IRON BINDING CAPACITY 351 ug/dL (260-490)
[2016-06-27] MEDS: TEMAZEPAM 15 MG CAP PO PRN (00:25)
[2016-06-27] MEDS: HYDROmorphONE/DILAUDID 2 MG TAB PO PRN ×3 (03:00→12:03)
[2016-06-27] MEDS: ACETAMINOPHEN 500 MG TAB PO SCH ×2 (06:01→14:06)
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
[2016-06-27] MEDS: ENOXAPARIN 40 MG/0.4 ML SYR SC SCH (08:02)
[2016-06-27] MEDS: SENNOSIDES/DOCUSATE SODIUM TAB PO SCH (08:02)
[2016-06-27] MEDS: CYCLOBENZAPRINE 10 MG TAB PO PRN (08:03)
[2016-06-27] MEDS: FAMOTIDINE 20 MG TAB PO SCH (08:03)
[2016-06-27] MEDS: ASPIRIN EC 81 MG TAB PO SCH (08:03)
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
[2016-06-27 09:14] VITALS: BP 128/81; PULSE 65; RESP 15; TEMP 98.5; O2SAT 94
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
[2016-06-28 17:05] LABS: BCRABLPCR FINAL DIAGNOSIS See Comments
[2016-06-29 13:17] LABS: JAK2 RESULT see interpretation; JAK2 V617F MUTATION DETECTION See Comments
== END 2016-06-27 14:44 | DRG 958 ==
LOC: F2N 13:04 → F3N 06-10 17:52
PROVIDERS: ADMIT Surgery; ATTEND Surgery
PROC: 0W9B30Z Drainage of Left Pleural Cavity with Drainage Device, Percutaneous Approach (ICD-10-PCS; 2016-06-08)
PROC: 0PS304Z Reposition Cervical Vertebra with Internal Fixation Device, Open Approach (ICD-10-PCS; principal; 2016-06-21 16:30)
DX: S12.100A Unspecified displaced fracture of second cervical vertebra, initial encounter for closed fracture (principal); S22.42XA Multiple fractures of ribs, left side, initial encounter for closed fracture; S27.2XXA Traumatic hemopneumothorax, initial encounter; S36.029A Unspecified contusion of spleen, initial encounter; D62 Acute posthemorrhagic anemia; S32.121A Minimally displaced Zone II fracture of sacrum, initial encounter for closed fracture; S32.592A Other specified fracture of left pubis, initial encounter for closed fracture; S27.321A Contusion of lung, unilateral, initial encounter; S36.00XA Unspecified injury of spleen, initial encounter; S62.397A Other fracture of fifth metacarpal bone, left hand, initial encounter for closed fracture; V43.52XA Car driver injured in collision with other type car in traffic accident, initial encounter; Y92.481 Parking lot as the place of occurrence of the external cause; M45.9 Ankylosing spondylitis of unspecified sites in spine; D47.3 Essential (hemorrhagic) thrombocythemia; M81.0 Age-related osteoporosis without current pathological fracture; Z87.891 Personal history of nicotine dependence; Z59.0 Homelessness
CPT/HCPCS: 80305; 81439-90; 92507-GN; 92523-GN; 92526-GN; 92610-GN; 96374; 97116-GP; 97163-GP; 97164-GP; 97165-GO; 97530-GO; 97530-GP; 97535-GO; C1713; C1769; J0330; J0690; J1100; J1170; J1650; J1885; J2250; J2370; J2405; J2704; J3010; Q9967

== ENCOUNTER 2016-07-06 03:28 | Observation (INO) | payer OTHER, MEDICAID ==
[2016-07-06] MEDS ORDERED: NS 1,000 ML IV ONE (03:41)
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
[2016-07-06 03:49] LABS: % IMMATURE GRANULYOCYTES 0.5 % (0.0-1.1); ABSOLUTE IMMATURE GRANULOCYTES 0.05 10^3/uL (0.00-0.10); ADD DIFF? NO; ADD MORPH? NO; ADD SCAN? NO; ATYPICAL LYMPHOCYTE FLAG 20 (0-99); FRAGMENT RBC FLAG 0 (0-99); HEMATOCRIT 33.6 % (40.0-51.0); HEMOGLOBIN 11.1 g/dL (13.7-17.5); LEFT SHIFT FLG 0 (0-99); LIPEMIA HEMOLYSIS FLAG 80 (0-99); MEAN CELL HEMOGLOBIN 31.5 pg (27.9-34.1); MEAN CELL VOLUME 95.5 fL (81.5-99.8); MEAN PLATELET VOLUME 8.1 fL (8.7-11.7); PLATELET CLUMPS FLAG 0 (0-99); PLATELET COUNT 639 10^3/uL (150-400); RED BLOOD CELL COUNT 3.52 10^6/uL (4.40-6.38); RED CELL DISTRIBUTION WIDTH 12.8 % (11.5-15.2)
[2016-07-06 04:06] LABS: ANION GAP 13 mEq/L (8-16); CALCIUM 9.9 mg/dL (8.5-10.4); CARBON DIOXIDE 24 mEq/l (22-31); CHLORIDE 101 mEq/L (97-110); CREATININE 0.8 mg/dL (0.7-1.3); GLOMERULAR FILTRATION RATE > 60; GLUCOSE 94 mg/dL (70-100); POTASSIUM 4.2 mEq/L (3.5-5.2); SODIUM 138 mEq/L (134-144)
[2016-07-06] MEDS ORDERED: IOPAMIDOL (ISOVUE-300) 100 ML BTL IV ONE (05:12)
[2016-07-06] MEDS ORDERED: ceFAZolin 2 GM in NS 100 ML IV ONE (05:31)
[2016-07-06] MEDS ORDERED: VANCOMYCIN HCL/NORMAL SALINE 250 ML IV ONE (05:33)
[2016-07-06] MEDS ORDERED: PIPERACILLIN/TAZO 4.5 GM/DEX 100 ML IV ONE (05:33)
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
[2016-07-06] MEDS ORDERED: ACETAMINOPHEN 325 MG TAB PO PRN (09:45)
[2016-07-06] MEDS ORDERED: HYDROmorphONE/DILAUDID 1 MG/ML SYR IVP PRN (09:45)
[2016-07-06] MEDS ORDERED: ONDANSETRON DISINTEGRATING 4 MG TAB PO PRN (09:45)
[2016-07-06] MEDS ORDERED: LORazepam 0.5 MG TAB PO PRN (09:45)
[2016-07-06] MEDS ORDERED: ONDANSETRON 4 MG/2 ML VIAL IVP PRN (09:45)
[2016-07-06] MEDS ORDERED: NS 1,000 ML IV SCH (09:45)
[2016-07-06] MEDS ORDERED: ALBUTEROL 3 ML DEYVIAL IH PRN (09:45)
[2016-07-06] MEDS ORDERED: oxyCODONE IR 5 MG TAB ONE (10:02)
[2016-07-06] MEDS: oxyCODONE IR 5 MG TAB PO PRN ×2 (10:05→19:52)
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
[2016-07-06] MEDS ORDERED: PIPERACILLIN/TAZO 3.375 GM/DEX 50 ML IV SCH (12:00)
[2016-07-06] MEDS ORDERED: POLYETHYLENE GLYCOL 3350 17 GM PKT PO PRN (15:06)
[2016-07-06] MEDS ORDERED: CYCLOBENZAPRINE 10 MG TAB PO PRN (15:06)
[2016-07-06] MEDS ORDERED: METHOCARBAMOL 750 MG TAB PO PRN (15:06)
[2016-07-06] MEDS ORDERED: TEMAZEPAM 15 MG CAP PO PRN (15:06)
[2016-07-06] MEDS ORDERED: oxyCODONE IR 5 MG TAB PO PRN (15:06)
[2016-07-06] MEDS ORDERED: DIAZEPAM 5 MG TAB PO PRN (15:06)
[2016-07-06] MEDS: HYDROmorphONE/DILAUDID 2 MG TAB PO PRN ×2 (15:31→23:27)
[2016-07-06] MEDS: ACETAMINOPHEN 500 MG TAB PO SCH ×2 (15:42→23:27)
[2016-07-06] MEDS: PIPERACILLIN/TAZO 3.375 GM/DEX 50 ML IV SCH ×2 (16:07→21:33)
[2016-07-06] MEDS: VANCOMYCIN 1.25 GM in D5W 250 ML IV SCH (16:53)
[2016-07-06] MEDS: SENNOSIDES 1 TAB PO SCH (19:52)
[2016-07-06] MEDS: FAMOTIDINE 20 MG TAB PO SCH (19:52)
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
[2016-07-07] MEDS: oxyCODONE IR 5 MG TAB PO PRN (04:21)
[2016-07-07] MEDS: PIPERACILLIN/TAZO 3.375 GM/DEX 50 ML IV SCH ×2 (04:21→10:24)
[2016-07-07] MEDS: VANCOMYCIN 1.25 GM in D5W 250 ML IV SCH (05:03)
[2016-07-07 05:30] LABS: % IMMATURE GRANULYOCYTES 0.4 % (0.0-1.1); ABSOLUTE IMMATURE GRANULOCYTES 0.02 10^3/uL (0.00-0.10); ADD DIFF? NO; ADD MORPH? NO; ADD SCAN? NO; ATYPICAL LYMPHOCYTE FLAG 30 (0-99); FRAGMENT RBC FLAG 0 (0-99); HEMATOCRIT 32.9 % (40.0-51.0); HEMOGLOBIN 10.5 g/dL (13.7-17.5); LEFT SHIFT FLG 0 (0-99); LIPEMIA HEMOLYSIS FLAG 80 (0-99); MEAN CELL HEMOGLOBIN 30.5 pg (27.9-34.1); MEAN CELL HEMOGLOBIN CONCENTR. 31.9 g/dL (32.4-36.7); MEAN CELL VOLUME 95.6 fL (81.5-99.8); PLATELET CLUMPS FLAG 0 (0-99); PLATELET COUNT 570 10^3/uL (150-400); RED BLOOD CELL COUNT 3.44 10^6/uL (4.40-6.38); RED CELL DISTRIBUTION WIDTH 12.6 % (11.5-15.2)
[2016-07-07 05:43] LABS: ANION GAP 11 mEq/L (8-16); CALCIUM 9.9 mg/dL (8.5-10.4); CARBON DIOXIDE 25 mEq/l (22-31); CHLORIDE 102 mEq/L (97-110); CREATININE 0.7 mg/dL (0.7-1.3); GLOMERULAR FILTRATION RATE > 60; GLUCOSE 84 mg/dL (70-100); POTASSIUM 5.1 mEq/L (3.5-5.2); SODIUM 138 mEq/L (134-144)
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
[2016-07-07 08:27] VITALS: BP 126/85; PULSE 73; RESP 16; TEMP 97.6; O2SAT 91
[2016-07-07] MEDS: FAMOTIDINE 20 MG TAB PO SCH (08:48)
[2016-07-07] MEDS: HYDROmorphONE/DILAUDID 2 MG TAB PO PRN (08:48)
[2016-07-07] MEDS: ACETAMINOPHEN 500 MG TAB PO SCH (08:48)
[2016-07-07] MEDS: SENNOSIDES 1 TAB PO SCH (08:49)
[2016-07-07] MEDS ORDERED: FLU VACC QS 2016-17(3-64YR)/PF 0.5 ML SYR (FLUARIX QUAD) IM ONE (08:59)
--- NOTE | 2016-07-07 11:46 | PDIAF ---
- Diagnosis Diagnosis: fever Code Status: Full Code - Medication Management Discharge Medications: Medications to Continue on Transfer Acetaminophen [Tylenol ES 500 mg (*)] 1,000 mg PO Q8H 07/06/16 [Last Taken Unknown] Aspirin [Aspirin 81mg (*)] 81 mg PO DAILY 07/06/16 [Last Taken Unknown] Cyclobenzaprine [Flexeril 10 MG (*)] 10 mg PO Q8H PRN 07/06/16 [Last Taken Unknown] Diazepam [Valium 5 MG (*)] 5 mg PO Q6H PRN 07/06/16 [Last Taken Unknown] Enoxaparin [Lovenox 40 MG (*)] 40 mg SQ DAILY 07/06/16 [Last Taken Unknown] Famotidine [Pepcid 20 MG (*)] 20 mg PO BID 07/06/16 [Last Taken Unknown] HYDROmorphone HCL [Dilaudid 2 mg (*)] 2 mg PO Q4H PRN 07/06/16 [Last Taken Unknown] Methocarbamol [Robaxin 750 mg (*)] 750 mg PO Q6H PRN 07/06/16 [Last Taken Unknown] Polyethylene Glycol 3350 [Miralax 17 gm (*)] 17 gm PO DAILY PRN 07/06/16 [Last Taken Unknown] Sennosides [Senokot] 1 each PO BID 07/06/16 [Last Taken Unknown] Temazepam [Restoril 15 MG (*)] 15 mg PO HS PRN 07/06/16 [Last Taken Unknown] oxyCODONE IR [Oxycodone Ir (*)] 5 mg PO Q3H PRN 07/06/16 [Last Taken Unknown] Albuterol [Proventil Neb] 3 ml IH Q2HRS PRN #0 deyvial 07/07/16 [Last Taken Unknown] oxyCODONE IR [Oxycodone Ir (*)] 5 - 10 mg PO Q3HRS PRN #0 tab 07/07/16 [Last Taken Unknown] Discharge Medications: Refer to the Discharge Home Medication list for PRN reason. PICC Care - Routine: N/A - Orders Services needed: Registered Nurse, Physical Therapy, Occupational Therapy - Labs/Radiology Imaging Orders: Faustino, 07/10/16 - Follow Up Care Current Providers and Referrals: Patient,NotPresent [Primary Care Provider] - As per Instructions
--- NOTE | 2016-07-07 16:26 | GDS ---
[f rep st] DISCHARGE SUMMARY DISCHARGE DIAGNOSES: 1. Fever. 2. Infected suture. 3. Left-sided pleural effusion. 4. Multiple rib fractures. 5. Odontoid fracture. CONSULTATIONS: General Surgery. STUDIES AND PROCEDURES DONE: CT of the chest. PHYSICAL EXAMINATION: GENERAL: The patient is alert. VITAL SIGNS: Afebrile at 36.4, pulse is 73, respiratory rate 16, blood pressure is 126/85, saturating 91% on room air. I have seen and evaluated the patient on the day of discharge. HOSPITAL COURSE: The patient is a 51-year-old male residing at [facility], who presented to the emergency room with complaints: 1. Fever. He was placed on broad-spectrum antibiotic therapy and had no further fevers during this hospitalization. The etiology was unclear at the time, but there was no evidence of fever during t his hospital course. 2. Infected suture. This was removed and cultured. He was consulted on by Dr. Perales of [facility]. 3. Left-sided pleural effusion. It does not appear that patient has pneumonia or empyema. He is a symptomatic, and it is felt that this fluid collection is incidental. I have discontinued his antib iotics at the time of disposition. He will get repeat chest x-ray in 2-3 days as well as laboratory evaluation. If fever recurs or symptoms change, he is noted to return to the emergency room. 4. Multiple old rib fractures. 5. Odontoid fracture. The patient is in a hard cervical collar. He will follow up in the outpatie nt setting continue cervical precautions. DISPOSITION: He will be discharged to return to [facility] where he had been previously residing . There are no pending studies. DISCHARGE MEDICATIONS: Please refer to EMR form. I have not adjusted the patient's previously pres cribed home medications. I spent greater than 35 minutes in the care, coordination, and management of this patient's disposit ion. /[id number]/MODL
[2016-07-07] MEDS ORDERED: PIPERACILLIN SODIUM/TAZOBACTAM 3.375 GM in D5W 50 ML IV SCH (22:00)
== END 2016-07-07 13:09 ==
LOC: EDUNIT# → INTOOBSV 05:27 → F3N 15:22
PROVIDERS: ADMIT Internal Medicine; ATTEND Internal Medicine
DX: T81.4XXA Infection following a procedure, initial encounter (principal); J90 Pleural effusion, not elsewhere classified; S22.42XD Multiple fractures of ribs, left side, subsequent encounter for fracture with routine healing; S12.100D Unspecified displaced fracture of second cervical vertebra, subsequent encounter for fracture with routine healing; V43.52XD Car driver injured in collision with other type car in traffic accident, subsequent encounter; Z23 Encounter for immunization; Z98.1 Arthrodesis status; Z87.891 Personal history of nicotine dependence; Z87.81 Personal history of (healed) traumatic fracture
CPT/HCPCS: 71020; 71035; 71260; 96361; 96365; 96367; 99285; G0378; J0690; J2543; J3370; Q9967

== ENCOUNTER → 2016-07-27 | Outpatient (CLI) | payer OTHER, MEDICAID | LOC: FIMAGING 11:41 | PROVIDERS: ATTEND Neurological Surgery | DX: S12.100D Unspecified displaced fracture of second cervical vertebra, subsequent encounter for fracture with routine healing (principal); M45.0 Ankylosing spondylitis of multiple sites in spine ==

== ENCOUNTER → 2016-08-21 | Outpatient (CLI) | payer OTHER, MEDICAID ==
[~2016-08-21] MED LIST: GADOBUTROL 10 ML VIAL IVP ONE
== END ==
LOC: FIMAGING 09:45
PROVIDERS: ATTEND Physician Assistant Surgical
DX: Z09 Encounter for follow-up examination after completed treatment for conditions other than malignant neoplasm (principal); S12.000A Unspecified displaced fracture of first cervical vertebra, initial encounter for closed fracture
CPT/HCPCS: A9585

== ENCOUNTER 2016-09-07 05:35 | Day surgery (SDC) | payer MEDICAID, OTHER ==
[2016-09-07] MEDS ORDERED: LR 1,000 ML IV ONE (06:28)
[2016-09-07] MEDS ORDERED: LIDOCAINE 1% 5 ML SDV ID PRN (06:28)
[2016-09-07] MEDS ORDERED: BUPIVACAINE 0.5% 30 ML SDV ONE (06:38)
[2016-09-07] MEDS ORDERED: LIDOCAINE 1% 30 ML SDV ONE (06:38)
[2016-09-07] MEDS ORDERED: MIDAZOLAM 2 MG/2 ML VIAL ONE (07:06)
[2016-09-07] MEDS ORDERED: fentaNYL 100 MCG/2 ML INJ ONE (07:14)
[2016-09-07] MEDS ORDERED: KETAMINE 100 MG/10 ML SYR IVP ONE (07:15)
[2016-09-07] MEDS ORDERED: PROPOFOL/EMULSION 500 MG/50 ML BOTTLE IV ONE (07:15)
[2016-09-07] MEDS ORDERED: DEXAMETHASONE 4 MG/ML VIAL ONE (07:48)
[2016-09-07] MEDS ORDERED: ONDANSETRON 4 MG/2 ML VIAL ONE (07:48)
[2016-09-07] MEDS ORDERED: LIDOCAINE 2% 5 ML SDV ONE (07:56)
--- NOTE | 2016-09-07 08:59 | GOP ---
[f rep st] OPERATIVE REPORT DATE OF OPERATION: SURGEON: Adarsh Alvarez MD BALLOON DIPPER: [place] DIRECTOR FOOD SAFETY, certified pesticide applicator. ANESTHESIA: Monitored anesthesia care. ANESTHESIOLOGIST: Dr. Muro. PREOPERATIVE DIAGNOSIS: Right inguinal hernia. POSTOPERATIVE DIAGNOSIS: Right inguinal hernia. PROCEDURE PERFORMED: Open right inguinal hernia repair, Mario type, with Prolene mesh. FINDINGS: SPECIMENS: Sac to Permanent Pathology. INDICATIONS: This is a 51-year-old gentleman with a known scrotal hernia, here for elective open re pair. DESCRIPTION OF PROCEDURE: Patient was brought into the operating room. After induction of IV sedat ion, his right groin is prepped with chlorhexidine and draped sterilely. Local anesthetic 0.5% Palomo rome and 1% Xylocaine are infused into the skin and subcutaneous tissues, as well as a field block. The hernia repair is done in an open fashion in the lines of Langerhans. An incision is made with a 10-blade, deepened with electrocautery. Crossing vessels are cauterized. The Bhaskar's fascia and then external oblique fascia are identified and divided. The ilioinguinal nerve crosses right acro ss the field of dissection and is divided sharply. The cord and hernia sac are isolated using sharp dissection. Blunt dissection and judicious use of electrocautery to take off the cremasteric muscl e are used to isolate the sac. A high ligation is done because approximately a 10 cm sac is identif ied, and this is done with 3-0 Polysorb. After ensuring hemostasis, good reapproximation of normal anatomy, the mesh is then affixed using 0 Ethibond suture from the pubic tubercle anterior laterally across the transversalis fascia and inferior laterally along the shelving edge of the inguinal liga ment. The leaves are approximated around the cord to form a new inguinal ring and enough space is t hen used to allow a tip of finger to pass between the cord and the edge of the mesh. The external o blique is then reapproximated in running fashion using 3-0 Polysorb. The incision is closed using 3 -0 Polysorb for the deep fascia dermis and a running Monocryl is used to reapproximate the skin. De rmabond is applied. The patient is awakened fully. Needle, instrument, and sponge counts are verif ied to be correct x2. He is taken to recovery room in stable condition. No immediate complications . COMPLICATIONS: There were no complications. /[id number]/MODL
== END 2016-09-07 09:40 | disposition home or self-care (01) ==
LOC: FSGY 05:35
PROVIDERS: ATTEND Surgery
PROC: 0YU50JZ Supplement Right Inguinal Region with Synthetic Substitute, Open Approach (ICD-10-PCS; principal; 2016-09-07 07:15)
DX: K40.90 Unilateral inguinal hernia, without obstruction or gangrene, not specified as recurrent (principal)
CPT/HCPCS: C1781; J1100; J2250; J2405; J2704; J3010

== ENCOUNTER → 2016-09-20 | Outpatient (CLI) | payer MEDICAID, OTHER | LOC: FIMAGING 08:14 | PROVIDERS: ATTEND Neurological Surgery | DX: Z09 Encounter for follow-up examination after completed treatment for conditions other than malignant neoplasm (principal); Z98.1 Arthrodesis status ==